=== PATIENT | male | born 1990 | race Caucasian/White ===

== ENCOUNTER 2024-08-07 08:32 | Observation (INO) ==
[2024-08-07] MEDS: ONDANSETRON INJ 2 MG/ML 2 ML VIAL IV STA (09:01)
[2024-08-07] MEDS: KETOROLAC TROMETHAMINE 15 MG/ML VIAL IV ONE (09:03)
[2024-08-07] MEDS: HYDROmorphone INJ 1 MG/ML SYRINGE IV STA (09:05)
[2024-08-07 09:07] LABS: Basophils # (auto) 0.06 K/uL (0.00-0.20); Basophils % (auto) 0.6 %; Eosinophils # (auto) 0.19 K/uL (0.00-0.50); Eosinophils % (auto) 1.9 %; Hematocrit (blood only) 42.3 % (42.0-52.0); Hemoglobin 13.7 g/dl (14.0-18.0); Immature Granulocytes # (auto) 0.02 K/uL (0.01-0.20); Immature Granulocytes % (auto) 0.2 %; Lymphocytes # (auto) 4.17 K/uL (1.20-3.40); Lymphocytes % (auto) 40.9 %; Mean Corpuscular Hgb Conc 32.4 g/dL (32.0-36.0); Mean Corpuscular Volume 92.6 fL (80.0-100.0); Mean Platelet Volume 9.7 fL (9.4-12.4); Monocytes # (auto) 1.24 K/uL (0.11-0.59); Monocytes % (auto) 12.2 %; Neutrophils # (auto) 4.51 K/uL (1.40-6.50); Neutrophils % (auto) 44.2 %; Platelet Count 308 K/uL (130-400); RDW Coefficient of Variation 12.7 % (11.5-14.5); RDW Standard Deviation 43.1 fL (36.4-46.3); Red Blood Count 4.57 M/uL (4.70-6.10); White Blood Count 10.19 K/ul (4.8-10.8)
--- NOTE | 2024-08-07 09:07 | Emergency Department Note ---
Impression & Plan Acute upper abdominal pain, Nausea & vomiting ED Provider Note NAME: YANET MCWILLIAMS AGE: 33 SEX: Male INFORMANT: Patient ED PROVIDER(S): Yehuda Bledsoe MD CHIEF COMPLAINT: Chest pain PLAN: Disposition: Admitted Outpatient prescription management: none Referral: None MEDICAL DECISION MAKING: Patient presented because of upper abdominal pain. He was quite uncomfortable. He had tenderness in the right upper quadrant as well as the epigastrium. IV was established. ECG showed no acute ischemia. His CBC and chemistry panels were unremarkable. LFTs and lipase were also unremarkable as well as amylase. Patient was treated with IV hydration, Zofran, Toradol, as well as a dose of IV Dilaudid. He had previously used Suboxone yesterday. Patient underwent CT imaging and there was suggestion of acute cholecystitis. Ultrasound imaging was ordered and I did consult with general surgery. Patient underwent ultrasound imaging and was found to have a large gallstone as well as signs consistent with cholecystitis. No ductal stones. Patient was evaluated by [facility] general surgery and was taken to the operating room by Dr. Seaman for further management. Care/management discussed with: pre press manager Level of care consideration(s): After review of the information above and other included data, I feel the patient requires escalation of care to admission Triage Nursing notes: reviewed and agree them. Vital Signs: reviewed and remarkable for no significant abnormalities Additional History obtained from: none Chronic Medical/Social Conditions affecting care: Suboxone use Prior/ Outside/ External records reviewed: none Differential Diagnosis: Cardiac sources, pancreatitis, biliary pathology infections, diverticulitis, UTI, obstruction, mesenteric ischemia, aortic pathology, inflammatory bowel disease, renal colic, PUD, hernia, volvulus, constipation, as well as other pathologies. Diagnostics, independently interpreted by me: ECG: Twelve-lead ECG was normal sinus rhythm at [address] elevation or depression. No T WI. Cardiac Monitoring: Cardiac monitoring ordered by me: The patient was placed on continuous cardiac monitoring and observed. It revealed a normal sinus rhythm at 62 beats per minute without ectopy or evidence of dysrhythmia. Medical decision rules: none Imaging studies: CT imaging reveals findings concerning for developing cholecystitis. I refer you to the EMR for further details. HPI: 33 year old Male arrives for evaluation of Patient presented because of complaints of chest pain but on further questioning it was located in the epigastrium. He had tenderness in the right upper quadrant as well. He had a similar but less severe visit a month ago and there was concerns that it may be mild pancreatitis as he had a minimally elevated lipase. Patient states he did well after that time. He had not followed up as he just got his health insurance this month. Patient rated his pain as a 10 out of 10. It started acutely at about 8:00 this morning, 40 minutes ago. Patient noted some nausea and did have 1 episode of vomiting. Pain does radiate to his back. Pain is worse with palpation and movement. Also notes pain is worse with deep breathing but on specific questioning does not have any pain in his chest area. Patient states that he took his Suboxone last night. He did take Tylenol this morning as well. Pt denies LOC, headache, fevers, chills, diaphoresis, visual changes, neck pain, chest pain, breathing difficulties, melena, hematochezia, urinary symptoms, numbness, weakness, lymphadenopathy, rash, or other complaints. PAST MEDICAL HISTORY: See Below, chronic Suboxone use, possible pancreatitis PAST SURGICAL HISTORY: See Below, SOCIAL HISTORY: See Below, smoker HOME MEDICATIONS: See Below ALLERGIES: See Below VITALS: See Below PHYSICAL EXAMINATION: GENERAL: Awake, alert, uncomfortable-appearing, in no distress HENT: Normocephalic, atraumatic. Oropharynx unremarkable. EYES: Normal conjunctiva. Sclera non-icteric. NECK: Inspection normal. Non-tender. Supple. No nuchal rigidity. FROM. No masses. RESPIRATORY: Clear to auscultation. No wheezes. No rales. Normal respiratory effort. CARDIAC: Normal rate. Normal rhythm. No murmurs. No rubs. Extremities warm and well perfused. Pulses equal. No JVD. GI: Soft, non-distended. Epigastric and right upper quadrant tenderness to palpation. No rebound but guarding. No masses. RECTAL: Deferred. MUSCULOSKELETAL: Atraumatic. Chest examination reveals no tenderness. The back is symmetrical on inspection without obvious abnormality. There is no CVA tenderness to palpation. No joint edema. LOWER EXTREMITIES: Calves are equal size bilaterally and non-tender. No edema. No discoloration. NEURO: Normal sensorium. No sensory or motor deficits noted. SKIN: No rash or jaundice noted. PROCEDURES: none CRITICAL CARE: none OBSERVATION NOTE: none Past Med/Surg History Problem List (Updated 08/07/24 @ 12:49 by Shruthi Cavazos RN) Acute cholecystitis Nausea & vomiting (Acute) Acute upper abdominal pain (Acute) Medical History (Updated 08/07/24 @ 12:49 by Shruthi Cavazos, SETH) Drug abuse patient has been 'clean' for 5 years; uses daily suboxone GERD (gastroesophageal reflux disease) Depression Anxiety No significant past medical history Surgical History History of tonsillectomy Social History Smoking Status: Current every day smoker Tobacco Type: E-cigarettes / Vaping Do You Dip or Chew Tobacco: No; Hx Alcohol Use: No Hx Substance Use: Yes Last Used Substance Other:: 08/06/24 Preferred Language: Slovak Communication Ability: Effective [employer] Analytics Faculty Member Required: No Beliefs That Will Affect Care: None marital status: Single Current Living Situation: Significant Other current occupational status: unemployed Other Information That Helps Us Care for You: No Feels Safe at Home: Yes Safety Concerns: Feels Safe At This Time Assistive Devices: Glasses Allergies Allergies Allergy/AdvReac Type Severity Reaction Status Date / Time No Known Allergies Allergy Unverified 08/07/24 12:24 Home Meds Home Medications Medication Instructions Recorded Confirmed acetaminophen 500 mg tablet 1,000 mg PO Q6H PRN Pain 04/17/19 08/07/24 (Tylenol Extra Strength) ibuprofen 200 mg tablet 400 - 600 mg PO QID PRN Pain 04/17/19 08/07/24 buprenorphine 8 mg-naloxone 2 mg 2 tab sublingual UD 06/18/24 08/07/24 sublingual tablet Results & Data (ED) Vital Signs Vital Signs - 24 hr 08/07/24 08:36 08/07/24 08:47 08/07/24 08:54 Temperature 36.6 C Temperature Source Temporal Artery Scan Pulse Rate 67 57 L Pulse Rate [Apical] Pulse Rate [Finger] Pulse Rhythm [Apical] Pulse Rhythm [Finger] Pulse Strength [Apical] Pulse Strength [Finger] Respiratory Rate 20 Respiratory Effort / Characteristics Non-Labored Spontaneous Respiratory Depth Normal Respiratory Pattern Blood Pressure 154/69 H Blood Pressure [Right Arm] Blood Pressure Mean 97 Blood Pressure Mean [Right Arm] Blood Pressure Position [Right Arm] Pulse Oximetry 98 Oxygen Delivery Method Room Air Room Air Sepsis Recent Fever Within 48 Hours No Sepsis New/Unexplained Change in Mental Status No Sepsis Action Taken by Nursing No Action Required 08/07/24 08:54 08/07/24 10:41 08/07/24 12:05 Temperature Temperature Source Pulse Rate 66 Pulse Rate [Apical] 57 L 68 Pulse Rate [Finger] Pulse Rhythm [Apical] Regular Regular Pulse Rhythm [Finger] Pulse Strength [Apical] Normal Normal Pulse Strength [Finger] Respiratory Rate 16 16 Respiratory Effort / Characteristics Non-Labored Non-Labored Respiratory Depth Normal Normal Respiratory Pattern Regular Regular Blood Pressure Blood Pressure [Right Arm] 117/60 115/61 Blood Pressure Mean Blood Pressure Mean [Right Arm] 79 79 Blood Pressure Position [Right Arm] Lying Lying Pulse Oximetry 99 94 98 Oxygen Delivery Method Room Air Room Air Room Air Sepsis Recent Fever Within 48 Hours Sepsis New/Unexplained Change in Mental Status Sepsis Action Taken by Nursing 08/07/24 12:07 08/07/24 12:25 Temperature 36.6 C Temperature Source Oral Pulse Rate 68 Pulse Rate [Apical] Pulse Rate [Finger] 57 L Pulse Rhythm [Apical] Pulse Rhythm [Finger] Regular Pulse Strength [Apical] Pulse Strength [Finger] Normal Respiratory Rate 16 20 Respiratory Effort / Characteristics Non-Labored Spontaneous Respiratory Depth Normal Respiratory Pattern Regular Blood Pressure 115/61 Blood Pressure [Right Arm] 126/76 Blood Pressure Mean Blood Pressure Mean [Right Arm] 92 Blood Pressure Position [Right Arm] Semi-fowlers Pulse Oximetry 98 96 Oxygen Delivery Method Room Air Room Air Sepsis Recent Fever Within 48 Hours Sepsis New/Unexplained Change in Mental Status Sepsis Action Taken by Nursing Laboratory Data 08/07/24 08:50 08/07/24 08:50 Lab Results 08/07/24 Range/Units 08:50 WBC 10.19 (4.8-10.8) K/ul RBC 4.57 L (4.70-6.10) M/uL Hgb 13.7 L (14.0-18.0) g/dl Hct 42.3 (42.0-52.0) % MCV 92.6 (80.0-100.0) fL MCH 30.0 (25.0-34.0) pg MCHC 32.4 (32.0-36.0) g/dL RDW Std Deviation 43.1 (36.4-46.3) fL RDW Coeff of Dino 12.7 (11.5-14.5) % Plt Count 308 (130-400) K/uL MPV 9.7 (9.4-12.4) fL Immature Gran % (Auto) 0.2 % Neut % (Auto) 44.2 % Lymph % (Auto) 40.9 % Howell % (Auto) 12.2 % Eos % (Auto) 1.9 % Baso % (Auto) 0.6 % Neut # (Auto) 4.51 (1.40-6.50) K/uL Lymph # (Auto) 4.17 H (1.20-3.40) K/uL Howell # (Auto) 1.24 H (0.11-0.59) K/uL Eos # (Auto) 0.19 (0.00-0.50) K/uL Baso # (Auto) 0.06 (0.00-0.20) K/uL Immature Gran # (Auto) 0.02 (0.01-0.20) K/uL Sodium 142 (136-145) mmol/L Potassium 4.0 (3.5-5.1) mmol/L Chloride 106 (98-107) mmol/L Carbon Dioxide 31 (21-32) mmol/L Anion Gap 5 (3-11) BUN 18 (6-23) mg/dl Creatinine 0.71 (0.6-1.4) mg/dl Est Cr Clr Drug Dosing 173.2 ml/min eGFR 122.70 BUN/Creatinine Ratio 25.4 H (10-20) Glucose 114 H (70-99(Fasting)) mg/dl Calcium 9.5 (8.6-10.3) mg/dl Total Bilirubin 0.4 (0.2-1.0) mg/dl AST 25 (13-39) U/L ALT 52 (7-52) U/L Alkaline Phosphatase 64 (34-104) U/L Troponin I High Sens 3.2 (0-20) pg/ml Total Protein 7.3 (6.0-8.3) gm/dl Albumin 4.2 (3.4-5.0) gm/dl Globulin 3.1 (2.5-4.0) gm/dl Albumin/Globulin Ratio 1.4 (0.9-2) Amylase 54 (25-115) U/L Lipase 33 (11-82) U/L Administered Medications Discontinued Medications Bupivacaine HCl/Epinephrine Bitart (Bupivacaine/Epinephrine 0.5% Mpf 1:200,000 30 Ml Vial) Confirm Administered Dose 30 ml .ROUTE .STK-MED ONE Stop: 08/07/24 12:13 Last Admin: 08/07/24 13:52 Dose: 30 ml Documented By: RYAN Fentanyl Citrate (Fentanyl Citrate Pf 100 Mcg/2 Ml Vial) 50 mcg IV Q5M PRN PRN Reason: PACU Use Only-Pain Stop: 08/07/24 20:47 Last Admin: 08/07/24 14:45 Dose: 50 mcg Documented By: Admin: 08/07/24 14:40 Dose: 50 mcg Documented By: Admin: 08/07/24 14:35 Dose: 50 mcg Documented By: Admin: 08/07/24 14:30 Dose: 50 mcg Documented By: SOULEYMANE Hydromorphone HCl (Hydromorphone Inj 1 Mg/Ml Syringe) 1 mg IV NOW STA Stop: 08/07/24 08:54 Last Admin: 08/07/24 09:05 Dose: 1 mg Documented By: SOULEYMANE(2) Hydromorphone HCl (Hydromorphone Inj 2 Mg/Ml Syr/Vial) 0.5 mg IV Q5M PRN PRN Reason: PACU Use Only-Pain Stop: 08/07/24 20:47 Last Admin: 08/07/24 15:05 Dose: 0.5 mg Documented By: Admin: 08/07/24 15:00 Dose: 0.5 mg Documented By: SOULEYMANE Sodium Chloride (Nss) 1,000 mls @ 200 mls/hr IV .Q5H FELECIA Stop: 08/08/24 08:59 Last Infusion: 08/07/24 15:58 Dose: Infused Documented By: Admin: 08/07/24 15:57 Dose: Not Given Documented By: Admin: 08/07/24 09:10 Dose: 200 mls/hr Documented By: SOULEYMANE(2) Cefoxitin Sodium 2,000 mg/ (Dextrose) 50 mls @ 100 mls/hr IV ONCE ONE; Protocol Stop: 08/07/24 13:59 Last Infusion: 08/07/24 15:58 Dose: Infused Documented By: Admin: 08/07/24 13:16 Dose: 100 mls/hr Documented By: PRACHI Ioversol (Optiray 320 100ml) 93 ml IV ONCE ONE Stop: 08/07/24 09:35 Last Admin: 08/07/24 09:35 Dose: 93 ml Documented By: BARBIE Ketorolac Tromethamine (Ketorolac Tromethamine 15 Mg/Ml Vial) 15 mg IV NOW ONE Stop: 08/07/24 08:52 Last Admin: 08/07/24 09:03 Dose: 15 mg Documented By: SOULEYMANE(2) Ondansetron HCl (Ondansetron Inj 2 Mg/Ml 2 Ml Vial) 4 mg IV NOW STA Stop: 08/07/24 08:53 Last Admin: 08/07/24 09:01 Dose: 4 mg Documented By: SOULEYMANE(2) Ondansetron HCl (Ondansetron Inj 2 Mg/Ml 2 Ml Vial) 4 mg IV ONCE PRN PRN Reason: PACU Use Only-Nausea/Vomiting Stop: 08/07/24 20:47 Last Admin: 08/07/24 14:56 Dose: 4 mg Documented By: SOULEYMANE Imaging Data Radiologist's Impression: Chest X-Ray 08/07/24 08:39 XR chest 1V portable HISTORY: 33 years-old Male Chest pain, nonspecific COMPARISON: 06/18/2024 TECHNIQUE: AP view the chest FINDINGS: Cardiac silhouette is upper limits of normal in size. Hypoinflation with bronchovascular crowding and ill-defined left basilar left perihilar densities. No pneumothorax or pleural effusion. IMPRESSION: Hypoinflation with bronchovascular crowding and bibasilar opacities which may represent atelectasis versus pneumonia. Findings could be correlated with PA and lateral views of the chest. ACT 112: Negative or not required by law. The above report was generated using voice recognition software. It may contain grammatical, syntax or spelling errors. Electronically signed by: Esteban Espitia M.D. 08/07/2024 9:03 AM Abdomen/Pelvis CT 08/07/24 08:[address] WITH IV CONTRAST CT DOSE: 1563.68 mGy.cm HISTORY: Acute epigastric and right upper quadrant abdominal pain in a patient with history of pancreatitis epigastric and RUQ abd pain, hx of pancreatitis TECHNIQUE: Multiaxial CT images of the abdomen and pelvis were performed following the IV administration of 93 cc of Optiray, A dose lowering technique was utilized adhering to the principles of ALARA. COMPARISON STUDY: CT chest 06/18/2024 FINDINGS: The imaged lower chest is unremarkable. No pneumoperitoneum. Unremarkable spleen with left upper quadrant splenule. Pancreas and adrenal glands are unremarkable. Hepatomegaly with severe hepatic steatosis. There is patency of the hepatic and portal veins. No evidence of cirrhosis. Nonspecific mildly enlarged periportal lymph nodes measure up to 11 mm. Coronal bladder wall thickening with mild pericholecystic stranding. No definite cholelithiasis identified by CT. No biliary duct dilation identified. 3.7 cm left renal cyst. No hydronephrosis. Decompressed urinary bladder with mild wall thickening. Aorta and IVC are unremarkable. No bowel obstruction or bowel wall thickening. Colonic diverticulosis. Normal appendix. No acute fracture. IMPRESSION: 1. Findings are suggestive of acute cholecystitis. 2. No bowel obstruction or bowel wall thickening. 3. Normal appendix. 4. Hepatic steatosis. ACT 112: Negative or not required by law. The above report was generated using voice recognition software. It may contain grammatical, syntax or spelling errors. Electronically signed by: Esteban Espitia M.D. 08/07/2024 10:22 AM Gallbladder Ultrasound 08/07/24 10:32 ABDOMINAL ULTRASOUND, RIGHT UPPER QUADRANT HISTORY: Acute right upper quadrant abdominal pain CT with acute cholecystitis. COMPARISON: CT of same day FINDINGS: Limited exam secondary to patient body habitus. Pancreas: The pancreas is obscured by bowel gas. Liver: Mild hepatomegaly with hepatic steatosis. Gallbladder: Cholelithiasis with large stone present within the gallbladder neck measuring over 2 cm. Mild gallbladder distention with wall thickening. The pericholecystic edema is better seen on same-day CT study. Negative sonographic Fishman sign. CBD: 4 mm Right kidney: No hydronephrosis. IMPRESSION: 1. Cholelithiasis with sonographic findings suggestive of acute cholecystitis. 2. No biliary ductal dilation. 3. Hepatomegaly with hepatic steatosis. ACT 112: Negative or not required by law. Electronically signed by: Esteban Espitia M.D. 08/07/2024 11:19 AM Discharge Plan Visit Data Chief Complaint: Chest Pain Stated Complaint: SEVERE CHEST PAIN ED Provider: Yehuda Bledsoe Discharge Problem: Acute upper abdominal pain, Nausea & vomiting Patient Disposition: Home - Self-Care Discharge Instructions Interventions: ED Discharge Assessment Last Done: 08/07/24 12:07
[2024-08-07] MEDS: SODIUM CHLORIDE 0.9% 1,000 ML IV SCH (09:10)
[2024-08-07 09:21] LABS: Albumin Globulin Ratio 1.4 (0.9-2); Albumin Level 4.2 gm/dl (3.4-5.0); BUN Creatinine Ratio 25.4 (10-20); Bilirubin,Total 0.4 mg/dl (0.2-1.0); Calcium 9.5 mg/dl (8.6-10.3); Creatinine Clr Calc Pharmacy 173.2 ml/min; Globulin 3.1 gm/dl (2.5-4.0); Total Protein 7.3 gm/dl (6.0-8.3)
[2024-08-07 09:27] LABS: Troponin I High Sensitivity 3.2 pg/ml (0-20)
[2024-08-07] MEDS: OPTIRAY 320 100ml IV ONE (09:35)
--- NOTE | 2024-08-07 10:24 | CT Scan Report ---
ABDOMEN AND PELVIS CT WITH IV CONTRAST CT DOSE: 1563.68 mGy.cm HISTORY: Acute epigastric and right upper quadrant abdominal pain in a patient with history of pancre atitis epigastric and RUQ abd pain, hx of pancreatitis TECHNIQUE: Multiaxial CT images of the abdomen and pelvis were performed following the IV administrat ion of 93 cc of Optiray, A dose lowering technique was utilized adhering to the principles of ALARA. COMPARISON STUDY: CT chest 06/18/2024 FINDINGS: The imaged lower chest is unremarkable. No pneumoperitoneum. Unremarkable spleen with left upper quadrant splenule. Pancreas and adrenal glands are unremarkable. Hepatomegaly with severe hepat ic steatosis. There is patency of the hepatic and portal veins. No evidence of cirrhosis. Nonspecific mildly enlarged periportal lymph nodes measure up to 11 mm. Coronal bladder wall thickening with mil d pericholecystic stranding. No definite cholelithiasis identified by CT. No biliary duct dilation id entified. 3.7 cm left renal cyst. No hydronephrosis. Decompressed urinary bladder with mild wall thickening. Ao rta and IVC are unremarkable. No bowel obstruction or bowel wall thickening. Colonic diverticulosis. Normal appendix. No acute fracture. IMPRESSION: 1. Findings are suggestive of acute cholecystitis. 2. No bowel obstruction or bowel wall thickening. 3. Normal appendix. 4. Hepatic steatosis. ACT 112: Negative or not required by law. The above report was generated using voice recognition software. It may contain grammatical, syntax o r spelling errors. Electronically signed by: Esteban Espitia M.D. 08/07/2024 10:22 AM
--- NOTE | 2024-08-07 11:20 | Ultrasound Report ---
ABDOMINAL ULTRASOUND, RIGHT UPPER QUADRANT HISTORY: Acute right upper quadrant abdominal pain CT with acute cholecystitis. COMPARISON: CT of same day FINDINGS: Limited exam secondary to patient body habitus. Pancreas: The pancreas is obscured by bowel gas. Liver: Mild hepatomegaly with hepatic steatosis. Gallbladder: Cholelithiasis with large stone present within the gallbladder neck measuring over 2 cm. Mild gallbladder distention with wall thickening. The pericholecystic edema is better seen on same-d ay CT study. Negative sonographic Fishman sign. CBD: 4 mm Right kidney: No hydronephrosis. IMPRESSION: 1. Cholelithiasis with sonographic findings suggestive of acute cholecystitis. 2. No biliary ductal dilation. 3. Hepatomegaly with hepatic steatosis. ACT 112: Negative or not required by law. Electronically signed by: Esteban Espitia M.D. 08/07/2024 11:19 AM
--- NOTE | 2024-08-07 11:50 | History & Physical Report ---
Date of Service August 07, 2024 Assessment & Plan (1) Acute cholecystitis: Plan: Pt with abd pain, nausea and vomiting. WBC wnl, no elevation of LFTs , on exam pt is TTP RUQ. CT scan and US concerning for acute cholecystitis, discussed results with the patient. Recommending surgical intervention in the form of a laparoscopic cholecystectomy with refrigeration technician surgeon Dr. Seaman. The patient wishes to make some phone calls prior to agreeing to surgical intervention. Consent for surgery was obtained, patient will call his Suboxone provider and ask about post operative pain control options and their policy. If the patient defers surgical intervention he will be admitted for IV antibiotics. Keep NPO IV Fluids for hydration IV antiemetic prn IV antibiotics ordered Mefoxin IV analgesic prn as above. discussed options/risks ( bleeding/infection/injury to other organs/bile duct injury or leak/dvt/pe/mi/cva etc...) also he is to contact his pain management team to advise us on post op pain regiment. questions answered. he agrees. will proceed with harriett galdamez today. History of Present Illness Chief Complaint: abdominal pain Primary Care Provider: NO PCP patient is a pleasant 33 year old Male with PMH of pancreatitis, drug use (on Suboxone ) with c/o abdominal pain that has been present since last night with associated nausea and one episode of emesis. Pain is worse with palpation and movement. Patient states that he took his Suboxone last night and Tylenol this morning. He denies fevers, chills, SOB. A ct scan was obtained and is showing concerns for acute cholecystitis. He denies prior abdominal surgeries. No blood thinners. Allergies Allergy/AdvReac Type Severity Reaction Status Date / Time No Known Allergies Allergy Unverified 06/18/24 20:31 Home Medications Medication Instructions Recorded Confirmed Type acetaminophen 500 mg tablet 1,000 mg PO Q6H PRN Pain 04/17/19 08/07/24 History (Tylenol Extra Strength) ibuprofen 200 mg tablet 400 - 600 mg PO QID PRN Pain 04/17/19 08/07/24 History buprenorphine 8 mg-naloxone 2 mg 2 tab sublingual UD 06/18/24 08/07/24 History sublingual tablet Past Med/Surg History Problem List (Updated 08/07/24 @ 11:43 by PAMELA Belcher) Acute cholecystitis Nausea & vomiting (Acute) Acute upper abdominal pain (Acute) Medical History No significant past medical history Surgical History History of tonsillectomy Social History Smoking Status: Current every day smoker Tobacco Type: E-cigarettes / Vaping Hx Alcohol Use: Yes (Socially) Hx Substance Use: No (Formerly used heroin most recently in 2019.) Preferred Language: [place] marital status: Single current occupational status: unemployed Feels Safe at Home: Yes Review of Systems Constitutional: no fever and no chills Respiratory: no dyspnea Cardiovascular: no chest pain Gastrointestinal: + abdominal pain, + nausea and + vomitin g Musculoskeletal: no muscle weakness Physical Exam Constitutional: cooperative and comfortable; no acute distress Respiratory: normal respiratory effort; no respiratory distress Cardiovascular: Rate/Rhythm: + bradycardic (57) Gastrointestinal (Abdomen): Inspection/Auscultation: abdomen not distended Percussion/Palpation: + abdomen tender (RUQ ) Musculoskeletal: no cyanosis or clubbing, extremities motor strength 5/5 Psychiatric: Orientation: alert and oriented x 3 Results & Data Results & Data Vital Signs (Past 12 Hours) Vital Signs Temp Pulse Pulse Resp BP BP Pulse Ox 08/07/24 10:41 57 L 16 117/60 94 08/07/24 08:54 66 99 08/07/24 08:54 08/07/24 08:47 57 L 08/07/24 08:36 97.9 F 67 20 154/69 H 98 O2 Del Method 08/07/24 10:41 Room Air 08/07/24 08:54 Room Air 08/07/24 08:54 Room Air 08/07/24 08:47 08/07/24 08:36 Room Air [phone] Report Patient: YANET MCWILLIAMS Admit Date: 08/07/24 MR#: [id number] Address1: [address] Acct ID:[id number] Address2: Date: [address] [facility] Zip: [place] [address] Age: 33 Location: ED Sex: M Room/Bed: Att Phy: Diagnosis: SEVERE CHEST PAIN Destinee Phy: PCP,NO Service Date: 08/07/24 Eddy Phy: Interpreting Phy: Esteban Santiago Phy: Ordering Phy: Yehuda Bledsoe MD cc: ~ ABDOMINAL ULTRASOUND, RIGHT UPPER QUADRANT HISTORY: Acute right upper quadrant abdominal pain CT with acute cholecystitis. COMPARISON: CT of same day FINDINGS: Limited exam secondary to patient body habitus. Pancreas: The pancreas is obscured by bowel gas. Liver: Mild hepatomegaly with hepatic steatosis. Gallbladder: Cholelithiasis with large stone present within the gallbladder neck measuring over 2 cm. Mild gallbladder distention with wall thickening. The pericholecystic edema is better seen on same-day CT study. Negative sonographic Fishman sign. CBD: 4 mm Right kidney: No hydronephrosis. IMPRESSION: 1. Cholelithiasis with sonographic findings suggestive of acute cholecystitis. 2. No biliary ductal dilation. 3. Hepatomegaly with hepatic steatosis. ACT 112: Negative or not required by law. Electronically signed by: Esteban Espitia M.D. 08/07/2024 11:19 AM Dictated: 08/07/24 1117 Transcribed: 08/07/24 1117 [place], [place] [phone] CT Scan Report Patient: YANET MCWILLIAMS Admit Date: 08/07/24 MR#: [id number] Address1: [address] [place] [address] Acct ID:[id number] Address2: Date: [address] [facility] Zip: [place] [address] Age: 33 Location: ED Sex: M Room/Bed: Att Phy: Diagnosis: SEVERE CHEST PAIN Destinee Phy: PCP,NO Service Date: 08/07/24 Eddy Phy: Interpreting Phy: Esteban Santiago Phy: Ordering Phy: Yehuda Bledsoe MD cc: ~ ABDOMEN AND PELVIS CT WITH IV CONTRAST CT DOSE: 1563.68 mGy.cm HISTORY: Acute epigastric and right upper quadrant abdominal pain in a patient with history of pancreatitis epigastric and RUQ abd pain, hx of pancreatitis TECHNIQUE: Multiaxial CT images of the abdomen and pelvis were performed following the IV administration of 93 cc of Optiray, A dose lowering technique was utilized adhering to the principles of ALARA. COMPARISON STUDY: CT chest 06/18/2024 FINDINGS: The imaged lower chest is unremarkable. No pneumoperitoneum. Unremarkable spleen with left upper quadrant splenule. Pancreas and adrenal glands are unremarkable. Hepatomegaly with severe hepatic steatosis. There is patency of the hepatic and portal veins. No evidence of cirrhosis. Nonspecific mildly enlarged periportal lymph nodes measure up to 11 mm. Coronal bladder wall thickening with mild pericholecystic stranding. No definite cholelithiasis identified by CT. No biliary duct dilation identified. 3.7 cm left renal cyst. No hydronephrosis. Decompressed urinary bladder with mild wall thickening. Aorta and IVC are unremarkable. No bowel obstruction or bowel wall thickening. Colonic diverticulosis. Normal appendix. No acute fracture. IMPRESSION: 1. Findings are suggestive of acute cholecystitis. 2. No bowel obstruction or bowel wall thickening. 3. Normal appendix. 4. Hepatic steatosis. ACT 112: Negative or not required by law. The above report was generated using voice recognition software. It may contain grammatical, syntax or spelling errors. Electronically signed by: Esteban Espitia M.D. 08/07/2024 10:22 AM Dictated: 08/07/24 1007 Transcribed: 08/07/24 1007 CBC w Diff Results Results CBC w Diff Results: RBC 4.57 M/uL (4.70-6.10) L 08/07/24 WBC 10.19 K/ul (4.8-10.8) 08/07/24 Hgb 13.7 g/dl (14.0-18.0) L 08/07/24 Hct 42.3 % (42.0-52.0) 08/07/24 MCV 92.6 fL (80.0-100.0) 08/07/24 MCH 30.0 pg (25.0-34.0) 08/07/24 MCHC 32.4 g/dL (32.0-36.0) 08/07/24 RDW Standard Deviation 43.1 fL (36.4-46.3) 08/07/24 RDW Coefficient of Variation 12.7 % (11.5-14.5) 08/07/24 Plt Count 308 K/uL (130-400) 08/07/24 MPV 9.7 fL (9.4-12.4) 08/07/24 Neutrophils (%) (Auto) 44.2 % 08/07/24 Lymphocytes (%) (Auto) 40.9 % 08/07/24 Monocytes # (Auto) 1.24 K/uL (0.11-0.59) H 08/07/24 Eosinophils # (Auto) 0.19 K/uL (0.00-0.50) 08/07/24 Immature Granulocyte % (Auto) 0.2 % 08/07/24 Neutrophils # (Auto) 4.51 K/uL (1.40-6.50) 08/07/24 Lymphocytes # (Auto) 4.17 K/uL (1.20-3.40) H 08/07/24 Monocytes # (Auto) 1.24 K/uL (0.11-0.59) H 08/07/24 Eosinophils # (Auto) 0.19 K/uL (0.00-0.50) 08/07/24 Basophils # (Auto) 0.06 K/uL (0.00-0.20) 08/07/24 Immature Granulocyte # (Auto) 0.02 K/uL (0.01-0.20) 4 Chemistry Results CMP Results: Sodium 142 mmol/L (136-145) 08/07/24 Potassium 4.0 mmol/L (3.5-5.1) 08/07/24 Chloride 106 mmol/L (98-107) 08/07/24 Carbon Dioxide 31 mmol/L (21-32) 08/07/24 Anion Gap 5 (3-11) 08/07/24 BUN 18 mg/dl (6-23) 08/07/24 Creatinine 0.71 mg/dl (0.6-1.4) 08/07/24 eGFR 122.70 08/07/24 Est GFR ( Amer) 134.4 ml/min 03/09/23 Est GFR (Non-Af Amer) 116.0 ml/min 03/09/23 BUN/Creatinine Ratio 25.4 (10-20) H 08/07/24 Glucose 114 mg/dl (70-99(Fasting)) H 08/07/24 Calcium 9.5 mg/dl (8.6-10.3) 08/07/24 Total Bilirubin 0.4 mg/dl (0.2-1.0) 08/07/24 AST 25 U/L (13-39) 08/07/24 ALT 52 U/L (7-52) 08/07/24 Alkaline Phosphatase 64 U/L (34-104) 08/07/24 Total Protein 7.3 gm/dl (6.0-8.3) 08/07/24 Albumin 4.2 gm/dl (3.4-5.0) 08/07/24 Globulin 3.1 gm/dl (2.5-4.0) 08/07/24 Albumin/Globulin Ratio 1.4 (0.9-2) 08/07/24 PG Care Time/CCT Total # of Minutes Spent Total Time Spent with Patient: Total time spent is greater than 50% in coordination of care (as documented) at patient's floor/unit and/or counseling patient: Coding Level of Care Code 93612 INT INP/OBS CARE 40MIN Diagnoses Acute cholecystitis K81.0
[2024-08-07] MEDS ORDERED: ONDANSETRON INJ 2 MG/ML 2 ML VIAL ONE (12:17)
[2024-08-07] MEDS ORDERED: LIDOCAINE 2% 2 ML VIAL/AMP(20MG/ML) INFIL ONE (12:17)
[2024-08-07] MEDS ORDERED: DEXAMETHASONE SOD INJ 4 MG/ML VIAL ONE (12:18)
[2024-08-07] MEDS ORDERED: fentaNYL citrate PF 100 MCG/2 ML VIAL ONE ×2 (12:18→13:03)
[2024-08-07] MEDS ORDERED: PROPOFOL IV EMULSION 10 MG/ML 20 ML VIAL IV ONE ×2 (12:18→14:17)
[2024-08-07] MEDS ORDERED: MIDAZOLAM HCL 1 MG/ML 2ML VIAL ONE (12:18)
[2024-08-07] MEDS ORDERED: ROCURONIUM BROMIDE 10 MG/ML 5 ML VIAL IV ONE ×2 (12:18→13:46)
--- NOTE | 2024-08-07 12:45 | Anesthesiology Consultation ---
Date of Service August 07, 2024 Assessment & Plan Chart Review Chart Review: Acceptable Risk for Surgery Consults Requested none History Surgery Operation Date: 08/07/24 13:35 Proposed Procedures p Laparoscopic Cholecystectomy - Mateo Seaman, Height/Weight Height: 5 ft 7 in Weight: 137 kg Allergies Allergy/AdvReac Type Severity Reaction Status Date / Time No Known Allergies Allergy Unverified 08/07/24 12:24 Medications Home Medications Medication Instructions Recorded Confirmed Last Taken acetaminophen 500 mg tablet 1,000 mg PO Q6H PRN Pain 04/17/19 08/07/24 Unknown (Tylenol Extra Strength) ibuprofen 200 mg tablet 400 - 600 mg PO QID PRN Pain 04/17/19 08/07/24 Unknown buprenorphine 8 mg-naloxone 2 mg 2 tab sublingual UD 06/18/24 08/07/24 08/07/24 03:00 sublingual tablet Active Medications Generic Name Dose Route Start Last Admin Trade Name Freq PRN Reason Stop Dose Admin Sodium Chloride 1,000 mls @ 200 mls/hr 08/07/24 09:00 08/07/24 09:10 Nss IV 08/08/24 08:59 200 mls/hr .Q5H FELECIA Administration NPO Date Last Intake of Fluids: 08/07/24 Time Last Intake of Fluids: 03:00 Date Last Intake of Solids: 08/07/24 Time Last Intake of Solids: 03:00 Past Medical History Medical History No significant past medical history Past Surgical History Surgical History History of tonsillectomy Social History Smoking Status: Current every day smoker Do You Dip or Chew Tobacco: No Hx Alcohol Use: No Hx Substance Use: Yes substance use type: marijuana Last Used Substance Other:: 08/06/24 Physical Exam Vital Signs Last Vital Signs Temp 36.6 C 08/07/24 12:25 Pulse 57 L 08/07/24 12:25 Resp 20 08/07/24 12:25 BP 126/76 08/07/24 12:25 Pulse Ox 96 08/07/24 12:25 O2 Del Method Room Air 08/07/24 12:25 Testing Laboratory Results 08/07/24 08:50 08/07/24 08:50
[2024-08-07] MEDS ORDERED: ePHEDrine sulfate 50 MG/ML AMP IV PRN (12:47)
[2024-08-07] MEDS ORDERED: PROMETHAZINE HCL 6.25 MG in SODIUM CHLORIDE 0.9% 50 ML IV PRN (12:47)
[2024-08-07] MEDS ORDERED: ATROPINE SULFATE 0.1 MG/ML 10ML SYR IV PRN (12:47)
[2024-08-07] MEDS: cefOXitin 2,000 MG in DEXTROSE 5 % MINI-B 50 ML IV ONE (13:16)
[2024-08-07] MEDS ORDERED: SUGAMMADEX SODIUM 200 MG/2 ML VIAL IV ONE (13:36)
[2024-08-07] MEDS ORDERED: KETOROLAC 30 MG/ML VIAL ONE (13:49)
[2024-08-07] MEDS: BUPIVACAINE/EPINEPHRINE 0.5% MPF 1:200,000 30 ML VIAL ONE (13:52)
--- NOTE | 2024-08-07 14:08 | Operative Report ---
PG Post Operative Report Pre & Post Diagnosis Operation Date: 08/07/24 13:35 Pre-Op Diagnosis: Acute cholecystitis Post-Op Diagnosis: Acute cholecystitis I identified the patient and participated in the time-out.: Yes Procedure Operation Date: 08/07/24 13:35 Actual Procedures p Laparoscopic Cholecystectomy(Not Applicable) - Mateo Seaman DO Surgeon Mateo Seaman DO Air Valve Mechanic ly rubio Estimated Blood Loss 20 Findings Consistent with Post-Op Diagnosis Specimens gallbladder Description of Procedure After informed consent was obtained the patient was taken to the operating room and placed in the supine position. After successful intubation the abdomen was sterilely prepped and draped in usual fashion. A periumbilical incision was made with an 11 blade scalpel and carried down through the soft tissue using electrocautery. The anterior rectus fascia was opened using electrocautery and 2 #0 Vicryl stay sutures were placed. The peritoneum was elevated with hemostats and incised under direct vision using Metzenbaum scissors. A finger sweep was performed and a 12 mm Iglesias trocar was placed. The abdomen was insufflated to 18 mmHg. The laparoscope was inserted and the abdomen was examined in 360. No gross abnormalities were identified. A subxiphoid 5 mm port and 2 right upper quadrant 5 mm ports were placed under direct vision. The patient was placed in a reverse Trendelenburg position and slightly airplaned to the left. The gallbladder was grasped and elevated superiorly and laterally. It was acutely inflammed. A [place] dissector was used to take down adhesions around the neck of the gallbladder. The cystic duct was identified and skeletonized. It was clipped twice proximally and once distally and transected using a laparoscopic scissor. In similar fashion the cystic artery was identified and skeletonized clipped and divided. The gallbladder was removed from the gallbladder fossa with electrocautery. It was placed into an Endo Catch bag. Thorough irrigation was performed. At the end of the procedure there was adequate hemostasis and no evidence of any bile leaks. A final look around the abdomen showed no other abnormalities. The gallbladder and trochars were all removed and the abdomen was desufflated. The fascia of the camera port was closed using 0 Vicryl in a [id number] fashion. All the wounds were irrigated and closed using 4-0 Monocryl. Marcaine was injected around them for postoperative analgesia and skin glue used as a dressing. The patient was awakened, extubated and transferred to recovery in stable condition. My STAFFING COORDINATOR podiatric assistant was present throughout the entire case... helped with prepping the patient. With exposure for trocar placement, as well as retracted the gallbladder throughout the case and also assisted with wound closure and dressing placement. I attest to the content of the Intraoperative Record and any orders documented therein. Any exceptions are noted below.
[2024-08-07] MEDS: fentaNYL citrate PF 100 MCG/2 ML VIAL IV PRN (14:30)
--- NOTE | 2024-08-07 14:38 | Electrocardiogram Report ---
Test Reason : Blood Pressure : */* mmHG Vent. Rate : 60 BPM Atrial Rate : 60 BPM P-R Int : 164 ms QRS Dur : 104 ms QT Int : 402 ms P-R-T Axes : 4 15 28 degrees QTcB Int : 402 ms Normal sinus rhythm Incomplete right bundle branch block Borderline ECG When compared with ECG of 18-Jun-2024 20:10, No significant change was found Confirmed by Kvng Dominguez ([id number]) on 08/07/2024 2:38:06 PM Referred By: REFERRED SELF Confirmed By: Kvng Dominguez
--- NOTE | 2024-08-07 14:49 | Anesthesiology Progress Note ---
Date of Service August 07, 2024 Anesthesia Post Procedure Vital Signs Vital Signs: Temp Pulse Pulse Pulse Resp BP BP 08/07/24 14:40 61 21 118/74 08/07/24 14:30 59 L 20 125/74 08/07/24 14:20 65 20 128/68 08/07/24 14:13 36.0 C L 79 13 130/62 08/07/24 12:25 36.6 C 57 L 20 126/76 08/07/24 12:07 68 16 115/61 08/07/24 12:05 68 16 115/61 08/07/24 10:41 57 L 16 117/60 08/07/24 08:54 66 08/07/24 08:54 08/07/24 08:47 57 L 08/07/24 08:36 36.6 C 67 20 154/69 H Pulse Ox O2 Del Method O2 Flow Rate 08/07/24 14:40 94 Room Air 08/07/24 14:30 100 Oxymask 7 08/07/24 14:20 99 Oxymask 7 08/07/24 14:13 92 Oxymask 7 08/07/24 12:25 96 Room Air 08/07/24 12:07 98 Room Air 08/07/24 12:05 98 Room Air 08/07/24 10:41 94 Room Air 08/07/24 08:54 99 Room Air 08/07/24 08:54 Room Air 08/07/24 08:47 08/07/24 08:36 98 Room Air Pain Intensity Abdomen: Pain Intensity: 5 Transfer of Care Handoff Completed per policy Notes Mental Status: alert / awake / arousable and participated in evaluation Patient Amnestic to Procedure: Yes Nausea / Vomiting: adequately controlled Pain: adequately controlled Airway Patency, RR, SpO2: stable & adequate BP & HR: stable & adequate Hydration State: stable & adequate Anesthetic Complications: no major complications apparent and Pt Satisfied with anesthetic care
[2024-08-07] MEDS: ONDANSETRON INJ 2 MG/ML 2 ML VIAL IV PRN (14:56)
[2024-08-07] MEDS: HYDROmorphone INJ 2 MG/ML SYR/VIAL IV PRN (15:00)
[2024-08-07] MEDS ORDERED: ACETAMINOPHEN 1,000 MG/100 ML VIAL IV PRN (15:51)
[2024-08-07] MEDS ORDERED: BUPRENORPHINE/NALOXONE 8/2 MG TAB SL SCH (15:51)
[2024-08-07] MEDS ORDERED: ACETAMINOPHEN 500 MG TAB PO PRN (15:51)
[2024-08-07] MEDS ORDERED: ONDANSETRON INJ 2 MG/ML 2 ML VIAL IV PRN (15:51)
[2024-08-07] MEDS ORDERED: MoRPHine SULFATE 2 MG/ML CARP IV PRN (15:51)
[2024-08-07] MEDS ORDERED: oxyCODONE HCL IR 5 MG TAB (IMMEDIATE RELEASE) PO PRN (15:51)
[2024-08-07] MEDS: MoRPHine SULFATE 4 MG/ML 1 ML CARP\\VIAL IV PRN (19:20)
[2024-08-08] MEDS: oxyCODONE HCL IR 5 MG TAB (IMMEDIATE RELEASE) PO PRN (00:08)
[2024-08-08 05:19] VITALS: TEMP 98.1; O2SAT 96
[2024-08-08] MEDS ORDERED: cefOXitin 2,000 MG in DEXTROSE 5 % MINI-B 50 ML IV SCH (06:00)
[2024-08-08 06:44] LABS: Basophils # (auto) 0.01 K/uL (0.00-0.20); Basophils % (auto) 0.1 %; Hematocrit (blood only) 38.5 % (42.0-52.0); Hemoglobin 12.5 g/dl (14.0-18.0); Immature Granulocytes # (auto) 0.06 K/uL (0.01-0.20); Immature Granulocytes % (auto) 0.4 %; Lymphocytes # (auto) 1.86 K/uL (1.20-3.40); Lymphocytes % (auto) 13.2 %; Mean Corpuscular Hemoglobin 29.7 pg (25.0-34.0); Mean Corpuscular Hgb Conc 32.5 g/dL (32.0-36.0); Mean Corpuscular Volume 91.4 fL (80.0-100.0); Monocytes # (auto) 1.12 K/uL (0.11-0.59); Monocytes % (auto) 7.9 %; Neutrophils # (auto) 11.06 K/uL (1.40-6.50); Neutrophils % (auto) 78.4 %; Platelet Count 282 K/uL (130-400); RDW Coefficient of Variation 12.8 % (11.5-14.5); RDW Standard Deviation 42.2 fL (36.4-46.3); Red Blood Count 4.21 M/uL (4.70-6.10); White Blood Count 14.11 K/ul (4.8-10.8)
[2024-08-08 07:14] LABS: Albumin Globulin Ratio 1.3 (0.9-2); Albumin Level 3.5 gm/dl (3.4-5.0); BUN Creatinine Ratio 19.1 (10-20); Bilirubin,Total 0.5 mg/dl (0.2-1.0); Calcium 8.6 mg/dl (8.6-10.3); Creatinine Clr Calc Pharmacy 202.6 ml/min; Globulin 2.7 gm/dl (2.5-4.0); Potassium 4.5 mmol/L (3.5-5.1); Total Protein 6.2 gm/dl (6.0-8.3)
[2024-08-08 07:25] VITALS: BP 97/60; RESP 20
--- NOTE | 2024-08-08 10:01 | Surgery Progress Note ---
Date of Service August 08, 2024 Assessment & Plan (1) Acute cholecystitis: Plan: Postoperative day #1 Doing as expected Okay for discharge. Instructions given. Follow-up in 1 to 2 weeks Admission and Anticipated Discharge Date Admission Date: August 07, 2024 Subjective Patient seen. Having considerable discomfort but this is expected. He is tolerating liquids Physical Exam Physical Exam: Alert no acute distress Abdomen is soft. Incisions are tender as expected Results & Data Vital Signs (Past 12 Hours) Vital Signs Temp Pulse Resp BP Pulse Ox O2 Del Method 08/08/24 08:14 Room Air 08/08/24 07:24 36.7 C 68 20 97/60 L 96 Room Air 08/08/24 04:00 36.7 C 63 16 117/67 96 Room Air 08/07/24 23:49 36.6 C 68 16 108/68 95 Room Air PG Care Time/CCT Total # of Minutes Spent Total Time Spent with Patient: Total time spent is greater than 50% in coordination of care (as documented) at patient's floor/unit and/or counseling patient: Coding Level of Care Code 23176 Post Operative Follow-Up Diagnoses Acute cholecystitis K81.0
[2024-08-08 12:32] VITALS: PULSE 58
--- NOTE | 2024-08-08 14:34 | Discharge Summary ---
Date of Service August 08, 2024 Admission HPI Per Admitting Provider patient is a pleasant 33 year old Male with PMH of pancreatitis, drug use (on Suboxone ) with c/o abdominal pain that has been present since last night with associated nausea and one episode of emesis. Pain is worse with palpation and movement. Patient states that he took his Suboxone last night and Tylenol this morning. He denies fevers, chills, SOB. A ct scan was obtained and is showing concerns for acute cholecystitis. He denies prior abdominal surgeries. No blood thinners. Principal Diagnosis acute cholecystitis Discharge Exam Constitutional cooperative and comfortable; no acute distress Respiratory normal respiratory effort; no respiratory distress Cardiovascular Rate/Rhythm: + bradycardic (57) Gastrointestinal (Abdomen) Inspection/Auscultation: abdomen not distended Percussion/Palpation: + abdomen tender (RUQ ) Musculoskeletal no cyanosis or clubbing, extremities motor strength 5/5 Psychiatric Orientation: alert and oriented x 3 Discharge Data Allergies Allergy/AdvReac Type Severity Reaction Status Date / Time No Known Allergies Allergy Unverified 08/07/24 12:24 Consultations 08/07/24 12:51 ED Decision to Admit Stat Procedures Performed Operation Date: 08/07/24 13:35 Actual Procedures p Laparoscopic Cholecystectomy(Not Applicable) - Mateo Seaman, DO Ordered Studies 08/07/24 08:51 CT abd pelvis IV con only Stat 08/07/24 10:32 US gallbladder Stat Hospital Course (1) Acute cholecystitis: This is a 33 yo male who presented to the [facility] ED on 08/07/24 with abdominal pain. Workup in the ED showed a CT a/p and U/S concerning for acute cholecystitis (see HPI for full details). The patient was tender to palpation in the RUQ. Patient made NPO with IVF and booked for the OR. On 08/07/24 the p atient went to the OR with Dr Seaman for a Laparoscopic Cholecystectomy . The patient tolerated the procedure well, see operative report for full details. Post operatively the patient's diet was advanced, pain managed on prn meds, and incisions clean/dry/intact. On POD#1 08/08/24 the patient was deemed stable for discharge to home. The patient was given discharge instructions, follow up recommendations, return precautions and a prescription for 15 tablets of oxycodone and was instructed to continue to take his Suboxone while taking the oxycodone along with OTC Tylenol and ibuprofen for pain control. Total Time Total Time Spent Total Time Spent (In Minutes): 10 Discharge Plan Discharge Items Patient Disposition: Home - Self-Care Reason For Visit: S/P LAP JERI Discharge Diagnosis: laparoscopic cholecystectomy Activity: As commented below Lifting: No more than 10 pounds Bathing Comment: you can shower , no soaking in pools/bath for 2 weeks Exercise/Sports: Wait until after follow-up appointment Driving/Machine Use: no driving if taking narcotic pain medication Non-emergency contact: Surgeon Call non-emergency contact if: you have any medication questions, your symptoms worsen, your pain is not controlled, your temperature is above 101, your wound has increased redness, your wound has increased drainage and your wound pain has increased Follow-up/Referrals: Mateo Seaman, [Surgeon] - (call office for follow up in 1-2 weeks ) PCP,NO [Primary Care Provider] - Diet: Regular Addtl Attending Provider Instructions: You have surgical glue called dermabond on your surgical site incisions. You may shower with this on. This will tend to come off within a couple of weeks. Do not pick at it. you can apply ice to your abdomen for comfort 20 min on 20 min off Pending Studies at Discharge: Yes Stand-Alone Forms: [facility], Smoking Cessation Medications and DC Order Prescriptions: New oxycodone 5 mg tablet 5 - 10 mg PO .[id number] MDD no more than 6 tabs in 24hours PRN (Reason: pain) Qty: 15 0RF Rx Instructions: continue your suboxone while taking this medication. Continued acetaminophen [Tylenol Extra Strength] 500 mg Tablet 1,000 mg PO Q6H PRN (Reason: Pain) ibuprofen 200 mg Tablet 400 - 600 mg PO QID PRN (Reason: Pain) buprenorphine-naloxone 8-2 mg tablet, sublingual 2 tab SUBLINGUAL UD Discharge Orders: Discharge Order (Routine); Ordered 08/08/24 Ordered By: Edgar Lutz Admission Data Admit Date/Time: 08/07/24 14:04 Attending Provider: Mateo Seaman Admit Provider: Mateo Seaman Primary Care Provider: PCP,NO Other Providers: Mateo Seaman Other Interventions: Discharge Summary Assessment (RN) Last Done: 08/08/24 12:31 Coding Level of Care Code 94990 IN/OBS DISCH 30 MIN/LESS Diagnoses Acute cholecystitis K81.0
== END 2024-08-08 13:04 | disposition home or self-care (01) ==
LOC: ED 08:32 → 3E 08:32